=== PATIENT | female | born 1965 | race Caucasian/White ===

== ENCOUNTER 2022-03-24 14:47 | Emergency (ER) | payer OTHER, SELFPAY ==
[2022-03-24 14:58] VITALS: BP 160/80; PULSE 79; RESP 16; TEMP 37.7; O2SAT 100
--- NOTE | 2022-03-24 15:07 | ED.URI ---
HPI - URI/Sore Throat General Chief Complaint: Upper Respiratory Infection Stated Complaint: trouble breathing, runny nose, congestion Time Seen by Provider: 03/24/22 15:07 Source: patient, RN notes reviewed and old records reviewed Mode of arrival: ambulatory Limitations: no limitations History of Present Illness HPI Narrative: 57 year old female who presents to [facility] care with complaints of sore throat, nasal drainage ear pain and itchy eyes and cough for the past 5 days. Patient reports that she has taken Mucinex for her symptoms. Patient reports that rest of family has been ill they have all tested negative for COVID Related Data Home Medications Medication Instructions Recorded Confirmed atorvastatin 10 mg tablet mg 03/24/22 levothyroxine 75 mcg tablet mcg 03/24/22 metoprolol succinate 25 mg mg PO 03/24/22 tablet,extended release 24 hr rosuvastatin 10 mg tablet mg 03/24/22 Allergies Allergy/AdvReac Type Severity Reaction Status Date / Time Sulfa (Sulfonamide Allergy Rash Verified 03/24/22 14:54 Antibiotics) cefdinir AdvReac Palpitation Verified 03/24/22 14:55 s cetirizine [From [facility]] AdvReac Palpitation Verified 03/24/22 14:55 s doxycycline AdvReac Palpitation Verified 03/24/22 14:55 s Review of Systems Review of Systems: CONSTITUTIONAL: Denies fever, chills, or sweats. EYES: Denies visual changes, redness, or discharge. ENT: reports rhinorrhea, congestion, sore throat, bilateral otalgia. CARDIOVASCULAR: Denies chest pain, palpitations, or edema. RESPIRATORY: Positive for cough or dyspnea stated at times with exertion GASTROINTESTINAL: Denies abdominal pain, nausea, vomiting, or diarrhea. GENITOURINARY: Denies dysuria or hematuria. SKIN: Denies rash or itching. MUSCULOSKELETAL: Denies back pain, joint pain, or myalgia. NEUROLOGIC: Denies headache, numbness, or weakness. PSYCHIATRIC: Denies anxiety or depression. All systems reviewed & are unremarkable except as noted in HPI and below PMFSH Past Medical History Medical History (Updated 03/25/22 @ 22:20 by Rosie Naranjo NP) Hyperlipidemia Hypothyroidism SVT (supraventricular tachycardia) Social History Social History (Updated 03/25/22 @ 22:24 by Rosie Naranjo NP) Smoking status: Never smoker Alcohol intake: current Alcohol use details: social Substance use type: does not use Living arrangements: with family Gender identity (if verbalized by the patient): Female Comments At time of signature agree with nursing documentation of past medical, surgical, social, and family history, There is no pertinent family history relevant to presenting complaint. Exam Narrative: ENERAL: Well-appearing, well-nourished, and in no acute distress. HEAD: Normocephalic, atraumatic. EYES: PERRLA and EOMI. ENT: Nares with some redness clear rhinorrhea no epistaxis. Mucous membranes moist.TM's normal with good light reflex, throat red with white lesions on tonsils, tonsils enlarged. NECK: Supple.no lymphadenopathy CHEST: Clear to auscultation. No respiratory distress.SAO2 100% on room air, no tachypnea or accessory muscle use noted, respiration nonlabored HEART: Regular rate and rhythm. No murmur heard. Normal peripheral pulses. ABDOMEN: Soft, nontender, nondistended, normal active bowel sounds. EXTREMITIES: Normal range of motion. No edema. SKIN: Warm, dry, no rash. NEURO: No focal deficits. Alert and oriented x3. Course Course Level of Care: Express Care Visit Vital Signs Vital signs: Vital Signs Temperature 37.7 C H 03/24/22 14:58 Pulse Rate 79 03/24/22 14:58 Respiratory Rate 16 03/24/22 14:58 Blood Pressure 160/80 H 03/24/22 14:58 Pulse Oximetry 100 03/24/22 14:58 Temperature 37.7 C H 03/24/22 14:58 Pulse Rate 79 03/24/22 14:58 Respiratory Rate 16 03/24/22 14:58 Blood Pressure 160/80 H 03/24/22 14:58 Pulse Oximetry 100 03/24/22 14:58 MDM - URI/Sore Throat Differentia
== END 2022-03-24 15:54 | disposition home or self-care (01) ==
PROVIDERS: Emergency Provider Registered Nurse
DX: J03.90 Acute tonsillitis, unspecified (principal); J06.9 Acute upper respiratory infection, unspecified; Z20.822 Contact with and (suspected) exposure to COVID-19; E78.5 Hyperlipidemia, unspecified; E03.9 Hypothyroidism, unspecified
CPT/HCPCS: 87081; 87426; 87880; 99213; C9803; G0463

== ENCOUNTER 2022-06-11 12:06 | Emergency (ER) | payer OTHER, SELFPAY ==
[2022-06-11 12:53] VITALS: BP 115/82; PULSE 81; RESP 16; TEMP 36.4; O2SAT 98
--- NOTE | 2022-06-11 12:53 | ED.URI ---
HPI - URI/Sore Throat General Chief Complaint: Upper Respiratory Infection Stated Complaint: CHILLS/BODY ACHES/COUGH/SORE THROAT Time Seen by Provider: 06/11/22 12:53 Source: patient Mode of arrival: ambulatory Limitations: no limitations History of Present Illness HPI Narrative: 57-year-old female presents with complaint of cough, nasal congestion, sinus pressure, sore throat for 2-3 days. The states ibuprofen and Tylenol do not seem to be helping sore throat so she thought maybe she had strep throat. Afebrile. No nausea vomiting diarrhea. Taking Mucinex to treat symptoms. All systems reviewed and negative except as noted above. Related Data Home Medications Medication Instructions Recorded Confirmed atorvastatin 10 mg tablet 10 mg PO DAILY 03/24/22 06/11/22 levothyroxine 75 mcg tablet 75 mcg PO DAILY 03/24/22 06/11/22 metoprolol succinate 25 mg 25 mg PO DAILY 03/24/22 06/11/22 tablet,extended release 24 hr rosuvastatin 10 mg tablet 10 mg PO DAILY 03/24/22 06/11/22 Allergies Allergy/AdvReac Type Severity Reaction Status Date / Time Sulfa (Sulfonamide Allergy Rash Verified 06/11/22 12:48 Antibiotics) cefdinir AdvReac Palpitation Verified 06/11/22 12:48 s cetirizine [From Zyrtec] AdvReac Palpitation Verified 06/11/22 12:48 s doxycycline AdvReac Palpitation Verified 06/11/22 12:48 s Review of Systems Review of Systems: CONSTITUTIONAL: Denies fever, chills, or sweats. EYES: Denies visual changes, redness, or discharge. ENT: Reports rhinorrhea, congestion, sore throat. Denies otalgia. CARDIOVASCULAR: Denies chest pain, palpitations, or edema. RESPIRATORY: Reports cough. Denies dyspnea. GASTROINTESTINAL: Denies abdominal pain, nausea, vomiting, or diarrhea. GENITOURINARY: Denies dysuria or hematuria. SKIN: Denies rash or itching. MUSCULOSKELETAL: Denies back pain, joint pain, or myalgia. NEUROLOGIC: Denies headache, numbness, or weakness. PSYCHIATRIC: Denies anxiety or depression. All other systems reviewed are negative, except as documented in HPI. [facility] Past Medical History Medical History (Updated 06/11/22 @ 13:02 by Shayy Davies NP) Hyperlipidemia Hypothyroidism SVT (supraventricular tachycardia) Social History Social History (Updated 03/25/22 @ 22:24 by Rosie Naranjo NP) Smoking status: Never smoker Alcohol intake: current Alcohol use details: social Substance use type: does not use Gender identity (if verbalized by the patient): Female Comments At time of signature, agree with nursing past medical, surgical, social and family history. There is no relevant family history pertinent to the presenting complaint. Exam Narrative: GENERAL: This is a well-nourished, well-developed patient, in no apparent distress. HEAD: normocephalic, atraumatic. EYES: PERRL. Sclera clear/white. Vision is grossly intact. EARS: External ears normal, auditory canals clear and without drainage, TMs normal without perforation. Hearing grossly intact. NOSE: External nose normal with clear nasal drainage. No erythema or swelling today is. THROAT: Mucous membranes moist, mild erythema posterior pharynx. NECK: Neck supple, non-tender without lymphadenopathy, masses or thyromegaly. CARDIOVASCULAR: Regular rate and rhythm without murmurs, gallops, or rubs. RESPIRATORY: Clear to auscultation. Breath sounds equal bilaterally. No wheezes, rales, or rhonchi. SKIN: warm, Dry, intact with no suspicious lesions or rash, good texture and turgor. NEURO: awake, alert, and oriented to person, place and time. There were no obvious focal neurologic abnormalities. EXTREMITIES: No joint tenderness, effusion, or edema noted. Course Course Level of Care: Express Care Visit Vital Signs Vital signs: Vital Signs Temperature 36.4 C 06/11/22 12:53 Pulse Rate 81 06/11/22 12:53 Respiratory Rate 16 06/11/22 12:53 Blood Pressure 115/82 06/11/22 12:53 Pulse Oximetry 98
== END 2022-06-11 12:58 | disposition home or self-care (01) ==
PROVIDERS: Emergency Provider Nurse Practitioner Family
DX: J06.9 Acute upper respiratory infection, unspecified (principal); E78.5 Hyperlipidemia, unspecified; E03.9 Hypothyroidism, unspecified
CPT/HCPCS: 87081; 87804; 87880; 99213; G0463

== ENCOUNTER 2025-08-05 08:27 | Emergency (ER) | payer MEDICAID, SELFPAY ==
--- NOTE | 2025-08-05 08:29 | ED.URI ---
HPI - URI/Sore Throat General Chief Complaint: Upper Respiratory Infection Stated Complaint: Sinus Infection Symptoms Time Seen by Provider: 08/05/25 08:28 Source: patient Mode of arrival: ambulatory Limitations: no limitations History of Present Illness HPI Narrative: Judith is a 60-year-old female patient presenting to the clinic today with complaints of possible sinus infection. She reports she has sinus congestion and cough for the past 4 days. She denies fevers, chills, body aches. Has been taking Mucinex for her symptoms. She is concerned that she may have a sinus infection or bronchitis. Related Data Home Medications ?Medication ?Instructions ?Recorded ?Confirmed ?Last Taken ?Type atorvastatin 10 mg tablet 10 mg PO DAILY 03/24/22 06/11/22 Unknown History levothyroxine 75 mcg tablet 75 mcg PO DAILY 03/24/22 06/11/22 Unknown History metoprolol succinate 25 mg 25 mg PO DAILY 03/24/22 06/11/22 Unknown History tablet,extended release 24 hr rosuvastatin 10 mg tablet 10 mg PO DAILY 03/24/22 06/11/22 Unknown History omeprazole 40 mg capsule,delayed mg 09/09/24 Unknown History release Allergies Allergy/AdvReac Type Severity Reaction Status Date / Time Sulfa (Sulfonamide Allergy Rash Verified 08/05/25 08:46 Antibiotics) cefdinir AdvReac Palpitation Verified 08/05/25 08:46 s cetirizine (From Zyrtec) AdvReac Palpitation Verified 08/05/25 08:46 s doxycycline AdvReac Palpitation Verified 08/05/25 08:46 s Review of Systems Review of Systems: Pertinent positives per HPI. Patient denies any fever, chills, rash, headache, visual changes, dizziness,sore throat, shortness of breath, chest pain, palpitations, nausea, vomiting, diarrhea, constipation, abdominal pain, or any urinary issues. [facility] Past Medical History Medical History Hypothyroidism SVT (supraventricular tachycardia) Hyperlipidemia Social History Social History Smoking status: Never smoker Alcohol intake: current Alcohol use details: social Substance use type: does not use Living arrangements: with family Gender identity (if verbalized by the patient): Female Comments At the time of my signature, I reviewed and agree with the nursing past medical, surgical, social, and family history. There is no relevant family history pertinent to the patient complaint. Exam Narrative: General: Well-developed, obese, in no apparent distress Head: Normocephalic, atraumatic Eyes: Pupils equally round and reactive to light bilaterally, EOM intact, sclera and conjunctive clear, no discharge, lids normal Ears: TMs intact and clear, ear canals clear, no drainage, grossly hearing normal. Nose: Nares patent, clear discharge, mild inflammation, maxillary sinus tenderness. Mouth: Oropharynx without lesions or masses, good dentition, MMM. Neck: Supple, trachea midline, no enlargement of anterior or posterior cervical nodes, no thyroid masses or goiter palpable. Cardio: Regular rate and rhythm, s1 and s2 normal, no murmur appreciated. Resp: Clear to auscultation bilaterally anteriorly and posteriorly, no rhonchi, rales, wheezing or rubs Course Course Level of Care: Express Care Visit Vital Signs Vital signs: Vital Signs Temperature 36.6 C 08/05/25 08:46 Pulse Rate 81 08/05/25 08:46 Respiratory Rate 18 08/05/25 08:46 Blood Pressure 136/70 08/05/25 08:46 Pulse Oximetry 100 08/05/25 08:46 Oxygen Delivery Room Air 08/05/25 08:46 Temperature 36.6 C 08/05/25 08:46 Pulse Rate 81 08/05/25 08:46 Respiratory Rate 18 08/05/25 08:46 Blood Pressure 136/70 08/05/25 08:46 Pulse Oximetry 100 08/05/25 08:46 Oxygen Delivery Room Air 08/05/25 08:46 [facility] MDM Narrative Medical decision making narrative: At the time of visit patient is resting comfortably on the exam table. Patient appears to be nontoxic. complaints of possible sinus infection. She reports she has sinus congestion and cough for the past 4 days. She denies fevers, chills, body aches. Has been taking Mucinex for her symptoms. She is concerned that she may have a sinus infection or bronchitis. On exam patient has bilateral TMs intact and clear, clear nasal drainage, mild anterior turbinate inflammation, maxillary sinus tenderness, oropharynx red with postnasal drip, lung sounds are clear, heart rates regular rate and rhythm. Offered COVID and flu testing and patient declines. Plan: I suspect patient has URI. Work note was given. Lungs are clear there is no sign of bacterial infection in the clinic today. Supportive measures were discussed with the patient and they voiced understanding discharge instructions and agrees to treatment plan. Return precautions reviewed Differential Diagnosis Differential Diagnosis: Differential diagnostic considerations for upper respiratory infection include upper respiratory infection, croup, otitis media, sinusitis, viral infection, bronchitis, influenza, pharyngitis, strep, uvulitis. Discharge Plan Discharge Clinical Impression: URI (upper respiratory infection) Qualifiers: URI type: unspecified URI Qualified Code(s): J06.9 - Acute upper respiratory infection, unspecified Patient Disposition: Home Condition: Stable Instructions: Antibiotic Form, Cold Symptoms (ED) Additional Instructions: Lung sounds are clear and there is no sign of bacterial infection in the clinic today. May take Coricidin HBP for cold/flu symptoms Increase fluids and stay well hydrated May take Tylenol or motrin as directed on bottle for pain/fever May use Flonase 1 spray in each nare daily May take OTC antihistamines such as Zyrtec or Claritin daily as directed on bottle May apply Vicks vapor rub to chest to open sinuses Sinus rinses for congestion Cepacol spray, cough drops, throat lozenges, warm tea with honey/lemon, gargle salt water to soothe throat BRAT diet for diarrhea Clear liquids x 24 hours then advance as tolerated for nausea/vomiting Go to the ED if you develop a worsening in your condition- high fever not controlled by Tylenol or Motrin, dehydration, weakness, lethargy, shortness of breath, or chest pain. Follow up with your PCP in 3-5 days if symptoms persist. Patient Language: Egyptian Prescriptions: No Action omeprazole 40 mg capsule,delayed release(DR/EC) atorvastatin 10 mg tablet 10 mg PO DAILY levothyroxine 75 mcg tablet 75 mcg PO DAILY metoprolol succinate 25 mg tablet extended release 24 hr 25 mg PO DAILY rosuvastatin 10 mg tablet 10 mg PO DAILY Follow-up/Referrals: Floyd,MD Osmel [Primary Care Provider, Unknown] Stand Alone Forms: Work/School Release IP Time of Disposition: 08:52 Quality NIH Nursing Documentation ED NIH nursing documentation: reviewed/agree
[2025-08-05 08:46] VITALS: BP 136/70; PULSE 81; RESP 18; TEMP 36.6; O2SAT 100
== END 2025-08-05 08:56 | disposition home or self-care (01) ==
PROVIDERS: Emergency Provider Nurse Practitioner Family; PCP Internal Medicine
DX: J06.9 Acute upper respiratory infection, unspecified (principal); E03.9 Hypothyroidism, unspecified; E78.5 Hyperlipidemia, unspecified
CPT/HCPCS: 99211; G0463